=== PATIENT | male | born 1945 | race Caucasian/White ===

== ENCOUNTER 2018-12-04 10:02 | Day surgery (SDC) | payer MEDICARE, OTHER ==
[~2018-12-04] VITALS: Ht 177.8 cm; Wt 81.6 kg
[~2018-12-04 10:02] MED LIST: ALPR0.5T3 PO; AMLO10TA5 PO; ASPI81TA85 PO; CALC600T60 PO; FLUTISP; KRIL1CAP6 PO; LIDOCAINE 2% INJ 100 MG/5 ML SDV (FOR ANES.) As Ordered ONE; LOSA100T50 PO; MAGN400C2 PO; META28.32 PO; MULTCAP PO; OMEP-218 PO; PROPOFOL 200 MG/20 ML VIAL As Ordered ONE; ROSU5TAB5 PO; SPIR1TAB34 PO; VENL-115 PO; VITA500045 PO
[2018-12-04] MEDS: NS 1,000 ML IV ONE (10:18)
--- NOTE | 2018-12-04 11:38 | ROOR ---
Patient Name: Tate Mcleod Procedure Date: 12/04/2018 11:11 AM Date of : 1945 Age: 73 Room: [facility] Gender: Male Note Status: Finalized Procedure: Total Colonoscopy to Cecum + Cold Snare Polypectomy Indications: High risk colon cancer surveillance: Personal history of colonic polyps, Last colonoscopy: 2009 Providers: Otilio Mejia MD Referring MD: Charissa Costa MD Requesting Provider: Medicines: Monitored Anesthesia Care Complications: No immediate complications. Procedure: Pre-Anesthesia Assessment: - The heart rate, respiratory rate, oxygen saturations, blood pressure, adequacy of pulmonary ventilation, and response to care were monitored throughout the procedure. The Colonoscope was introduced through the anus and advanced to the cecum, identified by appendiceal orifice and ileocecal valve. The colonoscopy was performed without difficulty. The patient tolerated the procedure well. The quality of the bowel preparation was excellent. Findings: The perianal and digital rectal examinations were normal. Non-bleeding internal hemorrhoids were found during retroflexion. The hemorrhoids were small and Grade I (internal hemorrhoids that do not prolapse). A small polyp was found in the rectum. The polyp was sessile. The polyp was removed with a cold snare. Resection and retrieval were complete. Two sessile polyps were found in the ascending colon. The polyps were small in size. These polyps were removed with a cold snare. Resection and retrieval were complete. The exam was otherwise without abnormality on direct and retroflexion views. Impression: - Non-bleeding internal hemorrhoids. - One small polyp in the rectum, removed with a cold snare. Resected and retrieved. - Two small polyps in the ascending colon, removed with a cold snare. Resected and retrieved. - The examination was otherwise normal on direct and retroflexion views. - The exam was otherwise normal to the cecum. Recommendation: - Patient has a contact number available for emergencies. The signs and symptoms of potential delayed complications were discussed with the patient. Return to normal activities tomorrow. Written discharge instructions were provided to the patient. - High fiber diet. - Discharge patient to home. - Continue present medications. - Await pathology results. - Telephone GI clinic for pathology results in 1 week. - Repeat colonoscopy for symptoms only. - Return to referring physician. - The findings and recommendations were discussed with the patient's family. Otilio Mejia MD Otilio Mejia MD 12/04/2018 11:38:38 AM Electronically signed by Otilio Mejia MD Number of Addenda: 0 Note Initiated On: 12/04/2018 11:11 AM Estimated Blood Loss: Estimated blood loss: none.
[2018-12-04 12:15] VITALS: BP 129/79
== END 2018-12-04 12:15 | disposition home or self-care (01) ==
LOC: M OPP 10:02
PROVIDERS: ATTEND Internal Medicine Gastroenterology
DX: Z12.11 Encounter for screening for malignant neoplasm of colon (principal); Z86.010 Personal history of colon polyps; K64.0 First degree hemorrhoids; K62.1 Rectal polyp; D12.2 Benign neoplasm of ascending colon; Z79.82 Long term (current) use of aspirin; Z79.899 Other long term (current) drug therapy; F17.210 Nicotine dependence, cigarettes, uncomplicated

== ENCOUNTER → 2020-05-03 | Outpatient (CLI) | payer MEDICARE, OTHER ==
[~2020-05-03] MED LIST changes: -AMLO10TA5 PO; +AMLO1TAB25 PO; +ASPI81TA26 PO; -ASPI81TA85 PO; +ASPI81TA86 PO; -LIDOCAINE 2% INJ 100 MG/5 ML SDV (FOR ANES.) As Ordered ONE; -PROPOFOL 200 MG/20 ML VIAL As Ordered ONE; +VITA-158 PO; +VITA50005 PO; +VITMTA PO
== END ==
LOC: M LABSMTC 08:58
PROVIDERS: ATTEND Anesthesiology
DX: Z01.812 Encounter for preprocedural laboratory examination (principal); Z20.822 Contact with and (suspected) exposure to COVID-19

== ENCOUNTER 2020-05-08 06:43 | Day surgery (SDC) | payer MEDICARE, OTHER ==
[~2020-05-08] VITALS: Ht 177.8 cm; Wt 87.7 kg
[~2020-05-08 06:43] MED LIST changes: +ACETYLCHOLINE OPHTH SOLN 1% 2ML (MIOCHOL-E) As Ordered ONE; +DUOVISC (0.50ML VISCOAT/0.55ML PROVISC) OPHTH KIT As Ordered ONE; +POVIDONE-IODINE 5% OPHTH PREP SOL 30ML As Ordered ONE; +TOBRADEX OPHTH OINT 3.5 GM As Ordered ONE; +TRYPAN BLUE 0.06 % 2.25 ML OPHTH SYR (VISIONBLUE) As Ordered ONE
--- OUTSIDE RECORDS SUMMARY | 2020-05-08 06:52 | CCD | Continuity of Care Document ---
Author Author Tate SAHU PA Organization Unknown Address [address] [facility] [place] [address] [place] [address] Phone [phone] Care Team Providers Care Glost Tile Shader Name Role Phone Damián Clarke MD [facility] [phone] Problems Description No Information Available Social History Type Date Description Comments Sex Unknown Tobacco Use Start: Unknown Never Used Smokeless Tobacco ETOH Use Drinks 3 Alcoholic Beverages Per Day Tobacco Use Start: [birth year]59 Light tobacco smoker (10 or fewe r cigarettes/day) 2 cigs a day, occassionally 4 to 5 per day prior. Recreational Drug Use Denies Drug Use Smoking Status Reviewed: 05/01/20 Light tobacco smoker (10 or fewer cigarettes/day) 2 cigs a day, occassionally 4 to 5 per d ay prior. Exercise Type/Frequency Exercises regularly Tattoo/Piercing none Sun Exposure Minimum amount of sun exposure Sun Exposure Uses sunscreen also wears cover ups, hat [place] shirt Seat Belt/Car Seat Always uses seat belt Bike Helmet does not ride Smoke Alarms Yes Smoke Alarms Carbon Monoxide Detector: Yes Allergies, Adverse Reactions, Alerts Active Allergies Reaction Severity Comments Date NKDA 02/17/2016 seasonal 07/26/2017 Medications Active Medications SIG Qnty Indications Ordering Provide r Date Vitamin D3 1.25mg (56400 Ut) Capsu les take one capsule by mouth once weekly 14caps Charissa Costa M.D. 05/01/2019 Alprazolam 0.5mg Tablets 1 tab by mouth once a day if needed for sleep 30tabs Charissa Costa M.D. Aspir-[address] 1 by mouth every day Unknown Krill Oil Bowl[place]-3 500mg Capsules daily Unknown Multi-Vitamin Daily Tablets 1 by mouth every day Unknown Calcium 600 600mg Tablets 1 by mouth daily Unknown Viagra 100mg Tablets take 1 tablet by mouth 30 minutes prior to intercourse. this is a 90 day supply 40taCharissa Carter M.D. Magnesium 400mg Tablets 1 by mouth bid Unknown Venlafaxine HCL ER 75mg Tablets ER 24HR 1 by mouth every day 90taCharissa Carter M.D. Amlodipine Besylate 10mg Tablets Take 1 Tablet Daily For Blood Pressure 90taCharissa Carter M.D. Omeprazole 20mg Capsules DR Take 1 Capsule Daily 90caps Charissa Costa M.D. Losartan Potassium 100mg Tablets Take 1 Tablet Daily For Blood Pressure 90taCharissa Carter M.D. Fluticasone Propionate 50mcg/Act Suspension two sprays each side of nose daily Unknow n Saline Nasal [place] 0.65% Solution use 4 times a day for nasal congestion/irritation Unkn own Azelastine HCL (Nasal) 0.15% Solut ion 1-2 sprays in each nostril twice a day as needed Unk nown Citracel 1 Scoop to 8 oz fluid daily Unknown Immunizations CPT Code Status Date Vaccine Lot # [id number] [facility], [facility] LNP-S, PF, 30 mcg/ 0.3 mL 02643 Given 12/24/2019 Influenza Virus Vaccine, Quadrivalent,age 3 and up,multidose vial [id number] 38442 Given 02/01/2019 Influenza Virus Vaccine, Quadrivalent,age 3 and up,multidose vial [id number] 94621 Given 12/29/2017 Influenza Virus Vaccine, Quadrivalent,age 3 and up,multidose vial [id number] 42725 Given 01/03/2017 Influenza Vaccination 58095 Given 05/27/2016 Pneumococcal Vaccine [id number] 17851 Given 12/20/2015 Influenza Vaccination 81095 Given 10/30/2014 Prevnar 13 For Adults 34397 Given 10/30/2014 Zostavax Vital Signs Date Vital Result Comment 05/01/2020 10:51am BP Systolic 155 mmHg BP Diastolic 91 mmHg BP Systolic Recheck 141 mmHg BP Diastolic Recheck 80 mmHg Heart Rate 17 /min Body Temperature 97.7 F Respiratory Rate 16 /min Height 70.0 inches 5'10" Weight 196.12 lb O2 % BldC Oximetry 98 % Peak Expiratory Flow Rate 490 Estimated Peak Flow Rate [place] Body Weight 166 lb BMI (Body Mass Index) 28.1 kg/m2 12/24/2019 1:40pm Body Temperature 96.9 F Height 71 inches 5'11" Peak Expiratory Flow Rate 504 Estimated Peak Flow Rate [place] Body Weight 172 lb Results Test Acquired Date Facility Test Result H/L Range Note Lipid Panel 04/25/2020 [facility] [address] [place], [place] [id number] [phone] Cholesterol, Total 188 mg/dL 100-199 Triglycerides 137 mg/dL 0-149 HDL Cholesterol 42 mg/dL >39 VLDL Cholesterol Marc 25 mg/dL 5-40 LDL Chol Calc ([facility]) 121 mg/dL High 0-99 Comment: TNP Metabolic Panel (14), Comprehensive 04/25/2020 [facility] [address] [place], [place] [id number] [phone] Glucose 104 mg/dL High 65-99 BUN 20 mg/dL 8-27 Creatinine 1.18 mg/dL 0.76-1.27 eGFR If NonAfricn Am 60 mL/min/1.73 >59 eGFR If Africn Am 69 mL/min/1.73 >59 BUN/Creatinine Ratio 17 10-24 Sodium 140 mmol/L 134-144 Potassium 4.7 mmol/L 3.5-5.2 Chloride 103 mmol/L 96-106 Carbon Dioxide, Total 25 mmol/L 20-29 Calcium 9.5 mg/dL 8.6-10.2 Protein, Total 7.8 g/dL 6.0-8.5 Albumin 4.3 g/dL 3.7-4.7 Globulin, Total 3.5 g/dL 1.5-4.5 A/G Ratio 1.2 1.2-2.2 Bilirubin, Total 0.7 mg/dL 0.0-1.2 Alkaline Phosphatase 91 IU/L 39-117 Ast (Sgot) 29 IU/L 0-40 Alt (SGPT) 32 IU/L 0-44 Procedures Description No Information Available Medical Devices Description No Information Available Encounters Type Date Location Provider Dx Diagnosis Office Visit 05/01/2020 10:45a Main Office Leann Sahu PA I10 Essential (primary) hypertension E78.2 Mixed hyperlipidemia R09.82 Postnasal drip Assessments Date Code Description Provider 05/01/2020 I10 Essential (primary) hypertension Leann Sahu PA 05/01/2020 E78.2 Mixed hyperlipidemia Leann Sahu PA 05/01/2020 R09.82 Posterior rhinorrhea Leann Sahu PA 12/24/2019 Z23 Encounter for immunization Charissa Colon ams, M.D. Plan of Treatment Future Appointment(s):* 10/30/2020 11:15 am - Elena Uriarte FNP at Main Office Functional Status Functional Condition Comment Date Status Bifocal glasses Active Independent with all ADL's Activ e couple dental implants Active Independent with all IADL's Acti ve Mental Status Mental Condition Comment Date Status None Active Referrals Description No Information Available
--- OUTSIDE RECORDS SUMMARY | 2020-05-08 06:52 | CCD | Continuity of Care Document ---
Author Author Tate SAHU PA Organization Unknown Address [address] [facility] [place] [place] [address] [place] [address] Phone [phone] Care Team Providers Care Care Services Manager Name Role Phone Damián Clarke MD [facility] [phone] Problems Description No Information Available Social History [...] Ordering Provide r Date Vitamin D3 1.25mg (69098 Ut) Capsu les take one capsule by mouth once weekly 14caps Charissa Costa M.D. 05/01/2019 Alprazolam 0.5mg Tablets 1 tab by mouth once a day if needed for sleep 30tabs Charissa Costa M.D. Aspir-[address] 1 by mouth every day Unknown Krill Oil Gray-3 500mg Capsules daily Unknown Multi-Vitamin Daily Tablets [...] of nose daily Unknow n Saline Nasal [place] 0.65% Solution use 4 times a day for nasal congestion/irritation Unkn own Azelastine HCL (Nasal) 0.15% Solut ion 1-2 sprays in each nostril twice a day as needed Unk nown Citracel 1 Scoop to 8 oz fluid daily Unknown Immunizations CPT Code Status Date Vaccine Lot # [id number] [facility], [facility], LNP-S, PF, 30 mcg/ 0.3 mL 48244 Given 12/24/2019 Influenza Virus Vaccine, Quadrivalent,age 3 and up,multidose vial [id number] 27139 Given 02/01/2019 Influenza Virus Vaccine, Quadrivalent,age 3 and up,multidose vial [id number] 03259 Given 12/29/2017 Influenza Virus Vaccine, Quadrivalent,age 3 and up,multidose vial [id number] 64742 Given 01/03/2017 Influenza Vaccination 62537 Given 05/27/2016 Pneumococcal Vaccine [id number] 53731 Given 12/20/2015 Influenza Vaccination 33340 Given 10/30/2014 Prevnar 13 For Adults 10514 Given 10/30/2014 Zostavax Vital Signs Date Vital Result Comment 05/01/2020 10:51am BP Systolic 155 mmHg BP Diastolic 91 mmHg BP Systolic Recheck 141 mmHg BP Diastolic Recheck 80 mmHg Heart Rate 17 /min Body Temperature 97.7 F Respiratory Rate 16 /min Height 70.0 inches 5'10" Weight 196.12 lb O2 % BldC Oximetry 98 % Peak Expiratory Flow Rate 490 Estimated Peak Flow Rate [place] Body Weight 166 lb BMI (Body Mass Index) 28.1 kg/m2 12/24/2019 1:40pm Body Temperature 96.9 F Height 71 inches 5'11" Peak Expiratory Flow Rate 504 Estimated Peak Flow Rate [place] Body Weight 172 lb Results Test Acquired Date Facility Test Result H/L Range Note Lipid Panel 04/25/2020 [facility] [address] [place], [place] [id number] [phone] Cholesterol, Total 188 mg/dL 100-199 Triglycerides 137 mg/dL 0-149 HDL Cholesterol 42 mg/dL >39 VLDL Cholesterol Marc 25 mg/dL 5-40 LDL Chol Calc ([facility]) 121 mg/dL High 0-99 Comment: TNP Metabolic Panel (14), Comprehensive 04/25/2020 [facility] [address] [place], [place] [id number] [phone] Glucose 104 mg/dL High 65-99 BUN 20 [...] Charissa Colon ams, M.D. Plan of Treatment 05/01/2020 - Leann Sahu PA* I10 Essential (primary) hypertension * Comments:* BP elevated in office today but home readings are well controlledcontinue home checks * Follow up:* 6 months * E78.2 Mixed hyperlipidemia* Comments:* cholesterol is at goal, labs reviewedcontinue regular exercise * R09.82 Posterior rhinorrhea* Comments:* nasal saline spray dailyhumidifier at nightcontinue astelin Functional Status Functional Condition Comment Date Status Bifocal glasses Active Independent with all ADL's Activ e couple dental implants Active Independent with all IADL's Acti ve Mental Status Mental Condition Comment Date Status None Active Referrals Description No Information Available
--- OUTSIDE RECORDS SUMMARY | 2020-05-08 06:53 | CCD ---
Author Author [facility] Organization [facility] Address Unknown Phone Unavailable Care Team Providers Care Collar Stitcher Name Role Phone Scordo, M Megan PA Unavailable Unavailable Scordo, M Megan PA Unavailable Unavailable Scordo, M Megan PA Unavailable Unavailable Scordo, M Megan PA Unavailable Unavailable Scordo, M Megan PA Unavailable Unavailable Scordo, M Megan PA Unavailable Unavailable Scordo, M Megan PA Unavailable Unavailable Scordo, M Megan PA Unavailable Unavailable Scordo, M Megan PA Unavailable Unavailable Scordo, M Megan PA Unavailable Unavailable Scordo, M Megan PA Unavailable Unavailable Scordo, M Megan PA Unavailable Unavailable Scordo, M Megan PA Unavailable Unavailable Scordo, M Megan PA Unavailable Unavailable Scordo, M Megan PA Unavailable Unavailable Scordo, M Megan PA Unavailable Unavailable Scordo, M Megan PA Unavailable Unavailable Scordo, M Megan PA Unavailable Unavailable Scordo, M Megan PA Unavailable Unavailable Scordo, M Megan PA Unavailable Unavailable Scordo, M Megan PA Unavailable Unavailable Scordo, M Megan PA Unavailable Unavailable Scordo, M Megan PA Unavailable Unavailable Scordo, M Megan PA Unavailable Unavailable Scordo, M Megan PA Unavailable Unavailable Scordo, M Megan PA Unavailable Unavailable Scordo, M Megan PA Unavailable Unavailable Scordo, M Megan PA Unavailable Unavailable Scordo, M Megan PA Unavailable Unavailable Scordo, M Megan PA Unavailable Unavailable Scordo, M Megan PA Unavailable Unavailable Scordo, M Megan PA Unavailable Unavailable Scordo, M Megan PA Unavailable Unavailable Scordo, M Megan PA Unavailable Unavailable Scordo, M Megan PA Unavailable Unavailable Scordo, M Megan PA Unavailable Unavailable Scordo, M Megan PA Unavailable Unavailable Scordo, M Megan PA Unavailable Unavailable Scordo, M Megan PA Unavailable Unavailable Scordo, M Megan PA Unavailable Unavailable Scordo, M Megan PA Unavailable Unavailable Scordo, M Megan PA Unavailable Unavailable Scordo, M Megan PA Unavailable Unavailable Petrancosta, [place] Leann PA-C Unavailable Unavailabl e Petrancosta, [place] Leann PA-C Unavailable Unavailabl e Petrancosta, [place] Leann PA-C Unavailable Unavailabl e Petrancosta, [place] Leann PA-C Unavailable Unavailabl e Petrancosta, [place] Leann PA-C Unavailable Unavailabl e Petrancosta, [place] Leann PA-C Unavailable Unavailabl e Petrancosta, [place] Leann PA-C Unavailable Unavailabl e Petrancosta, [place] Leann PA-C Unavailable Unavailabl e Petrancosta, [place] Leann PA-C Unavailable Unavailabl e Petrancosta, [place] Leann PA-C Unavailable Unavailabl e Petrancosta, [place] Leann PA-C Unavailable Unavailabl e Petrancosta, [place] Leann PA-C Unavailable Unavailabl e Petrancosta, [place] Leann PA-C Unavailable Unavailabl e Petrancosta, [place] Leann PA-C Unavailable Unavailabl e Petrancosta, [place] Leann PA-C Unavailable Unavailabl e Petrancosta, [place] Leann PA-C Unavailable Unavailabl e Petrancosta, [place] Leann PA-C Unavailable Unavailabl e Petrancosta, [place] Leann PA-C Unavailable Unavailabl e Petrancosta, [place] Laenn PA-C Unavailable Unavailabl e Petrancosta, [place] Leann PA-C Unavailable Unavailabl e Petrancosta, [place] Leann PA-C Unavailable Unavailabl e Petrancosta, [place] Leann PA-C Unavailable Unavailabl e Petrancosta, [place] Leann PA-C Unavailable Unavailabl e [place], L Alexandra PHOTOGRAPHIC PROCESS WORKER Unavailable Unavailable [place], L Laexandra PHOTOGRAPHIC PROCESS WORKER Unavailable Unavailable [place], L Alexandra PHOTOGRAPHIC PROCESS WORKER Unavailable Unavailable Wicho, L Alexandra PHOTOGRAPHIC PROCESS WORKER Unavailable Unavailable [place]ich[place], L Alexandra PHOTOGRAPHIC PROCESS WORKER Unavailable Unavailable [place], L Alexandra PHOTOGRAPHIC PROCESS WORKER Unavailable Unavailable [place], L Alexandra PHOTOGRAPHIC PROCESS WORKER Unavailable Unavailable [place], L Alexandra PHOTOGRAPHIC PROCESS WORKER Unavailable Unavailable [place], L Alexandra PHOTOGRAPHIC PROCESS WORKER Unavailable Unavailable [place], L Alexandra PHOTOGRAPHIC PROCESS WORKER Unavailable Unavailable [place], L Alexandra PHOTOGRAPHIC PROCESS WORKER Unavailable Unavailable [place], L Alexandra PHOTOGRAPHIC PROCESS WORKER Unavailable Unavailable [place], L Alexandra PHOTOGRAPHIC PROCESS WORKER Unavailable Unavailable [place], L Alexandra PHOTOGRAPHIC PROCESS WORKER Unavailable Unavailable [place], L Alexandra PHOTOGRAPHIC PROCESS WORKER Unavailable Unavailable [place], L Alexandra PHOTOGRAPHIC PROCESS WORKER Unavailable Unavailable [place], L Alexandra PHOTOGRAPHIC PROCESS WORKER Unavailable Unavailable [place], L Alexandra PHOTOGRAPHIC PROCESS WORKER Unavailable Unavailable [place], L Alexandra PHOTOGRAPHIC PROCESS WORKER Unavailable Unavailable [place], L Alexandra PHOTOGRAPHIC PROCESS WORKER Unavailable Unavailable [place], L Alexandra PHOTOGRAPHIC PROCESS WORKER Unavailable Unavailable [place], L Alexandra PHOTOGRAPHIC PROCESS WORKER Unavailable Unavailable [place], L Alexandra PHOTOGRAPHIC PROCESS WORKER Unavailable Unavailable [place], L Alexandra PHOTOGRAPHIC PROCESS WORKER Unavailable Unavailable [place], L Alexandra PHOTOGRAPHIC PROCESS WORKER Unavailable Unavailable [place], L Alexandra PHOTOGRAPHIC PROCESS WORKER Unavailable Unavailable [place], L Alexandra PHOTOGRAPHIC PROCESS WORKER Unavailable Unavailable [place], L Alexandra PHOTOGRAPHIC PROCESS WORKER Unavailable Unavailable [place], L Alexandra PHOTOGRAPHIC PROCESS WORKER Unavailable Unavailable [place], L Alexandra PHOTOGRAPHIC PROCESS WORKER Unavailable Unavailable [place], L Alexandra PHOTOGRAPHIC PROCESS WORKER Unavailable Unavailable [place], L Alexandra PHOTOGRAPHIC PROCESS WORKER Unavailable Unavailable [place], L Alexandra PHOTOGRAPHIC PROCESS WORKER Unavailable Unavailable Re-disclosure Warning The records that you are about to access may contain information from federally-assisted alcohol or drug abuse programs. If such information is present, then the following federally mandated warning applies: This information has been disclosed to you from records protected by federal confidentiality rules (42 CFR part 2). The federal rules prohibit you from making any further disclosure of this information unless further disclosure is expressly permitted by the written consent of the person to whom it pertains or as otherwise permitted by 42 CFR part 2. A general authorization for the release of medical or other information is NOT sufficient for this purpose. The Federal rules restrict any use of the information to criminally investigate or prosecute any alcohol or drug abuse patient.The records that you are about to access may contain highly sensitive health information, the redisclosure of which is protected by Article 27-F of the [facility] Public Health law. If you continue you may have access to information: Regarding HIV / AIDS; Provided by facilities licensed or operated by the [facility] Office of Mental Health; or Provided by the [facility] Office for People With Developmental Disabilities. If such information is present, then the following [facility] mandated warning applies: This information has been disclosed to you from confidential records which are protected by state law. State law prohibits you from making any further disclosure of this information without the specific written consent of the person to whom it pertains, or as otherwise permitted by law. Any unauthorized further disclosure in violation of state law may result in a fine or care home sentence or both. A general authorization for the release of medical or other information is NOT sufficient authorization for further disc losure. Family History Family Member Name Family Member Gender Family Member Status Date o f Status Description Data Source(s) Unknown Male Problem [facility] ([facility]) Unknown Unknown Problem [facility] ([facility] Encounters Encounter Providers Location Date Indications Data Source(s ) Outpatient Attender: Leann Sahu PA-C Main Office 05/01/2020 09:45:00 AM EST [facility] ([facility] Outpatient Attender: Megan ARENAS Main Office 10/30/2019 10:45:00 AM EDT [facility] ([facility] Outpatient Attender: Alexandra CHONG Main Office 05/17/2019 09:30:0 0 AM EST [facility] ([facility] Outpatient Attender: Megan ARENAS Main Office 05/01/2019 09:15:00 AM EST [facility] ([facility] Immunizations Vaccine Date Status Description Data Source(s) Pfizer-Sars-(Covid-19) vaccine, mRNA, LNP-S, PF, 30 mc g/ 0.3 mL 04/20/2020 10:14:00 AM EST completed [facility] ([facility] New in 2012. IIV4 12/24/2019 01:39:00 PM EDT completed [facility] ([facility] Medications Medication Brand Name Start Date Product Form Dose Route Admi nistrative Instructions Pharmacy Instructions Status Indications Reaction Description Data Source(s) moxifloxacin 5 MG/ML Ophthalmic Solution 0.5 % MOXIFLOXACIN HCL 04/30/2020 12:00:00 AM EST drops 3 START DAY OF LEOLA KOLBY AFTER PROCEDURE 1 DROP IN THE RIGHT EYE FOUR TIMES A DAY START DAY OF SURGERY AFTER PROCEDURE 1 D ROP IN THE RIGHT EYE FOUR TIMES A DAY SOLD: 04/30/2020 [facility] 1 % 04/30/2020 12:00:00 AM EST drops,suspension 10 INSTILL 1 DROP IN THE LEFT EYE FOUR TIMES A DAY INSTILL 1 DROP IN THE LEFT EYE FOUR TIMES A DAY SOLD: 04/30/2020 [facility] meloxicam 7.5 MG Oral Tablet Meloxicam 10/30/2019 12:00:00 AM EDT ORAL active [facility] ([facility] meloxicam 7.5 MG Oral Tablet MELOXICAM 10/30/2019 12:00:00 AM EDT tabl et 60 TAKE 1 TABLET BY MOUTH UP TO TWICE A DAY NEEDED FOR PAIN TAKE 1 TABLET BY MOUTH UP TO TWICE A DAY NEEDED FOR PAIN SOLD: 10/31/2019 [facility] Ergocalciferol 42920 UNT Oral Capsule Vitamin D (Ergocalcife rol) 06/19/2019 12:00:00 AM EDT active M [facility] ([facility] Cholecalciferol 16410 UNT Oral Capsule Vitamin D3 05/01/2019 12:0 0:00 AM EST ORAL active [facility] ([facility] Rosuvastatin calcium 5 MG Oral Tablet Rosuvastatin Calcium 0 05/01/2019 12:00:00 AM EST ORAL active [facility] ([facility] pitavastatin 2 MG Oral Tablet [Livalo] Livalo 02/01/2019 12:00:00 AM EST ORAL completed [facility] ([facility] Insurance Providers Payer name Policy type / Coverage type Policy ID Covered green party ID Covered green party's relationship to tobias Policy Tobias Plan Information [facility] [id number] SP [id number] MEDICARE [id number] SP [id number] [facility] [id number] MEDICARE [id number] SP [id number] A Umr (pr) Medigap Part B [id number] Self [id number] Medicare [place] Primary [id number] Self [id number] Umr Medigap Part B [id number] Self [id number] [place] Primary [id number] Self [id number] UMR [id number] Commercial Insur ance Co. [id number] Medicare [id number] Medicare Part [id number] [employer] Medigap Part B [id number] Self [id number] Medicare [place] Medicare Primary [id number] Self [id number] [employer] Medigap Part B [id number] Self [id number] [place] Medicare Primary [id number] Self [id number] [employer] -O/P [id number] 18 [id number] MEDICARE PART A -O/P [id number] 18 [id number] [place] Medigap Part B [id number] Self [id number] [place] Primary [id number] Self [id number] [place] Medigap Part B [id number] Self [id number] [place] Primary [id number] Self [id number] [employer] PPO O [id number] S [id number] MEDICARE C [id number] S [id number] A [employer] Medigap Part B [id number] Self [id number] [place] Primary [id number] Self [id number] [place] Medigap Part B Self Medicare [place] Primary Self [id number] A Problems, Conditions, and Diagnoses Code Display Name Description Problem Type Effective Dates Data Source(s) 95244823 Essential hypertension Essential hypertension Problem 05/17/2019 12:00:00 AM EST [facility] ([facility] [id number] Pure hypercholesterolemia Pure hypercholesterolemia Pr oblem 05/17/2019 12:00:00 AM EST [facility] ([facility] ) Surgeries/Procedures Procedure Description Date Indications Data Source(s) Brief Emotional/Behav Assessment W/ Scoring Doc Per Standard Inst 05/01/2019 12:00:00 AM EST [facility] ([facility] Results ID Date Data Source [id number] 05/03/2020 09:00:00 AM EST [facility] Name Value Range Interpretation Code Description Data Paulina rce(s) Supporting Document(s) SARS coronavirus 2 RNA Not Detected [facility] This lab was ordered by [facility] and reported by [facility]. ID Date Data Source [id number] 04/25/2020 10:36:00 AM EST [facility] ([facility] Name Value Range Interpretation Code Description Data Paulina rce(s) Supporting Document(s) Glucose [Mass/volume] in Serum or Plasma 104 mg/dL 65-99 [facility] ([facility] Urea nitrogen [Mass/volume] in Serum or Plasma 20 mg/dL 8-27 [facility] ([facility] Creatinine [Mass/volume] in Serum or Plasma 1.18 mg/dL 0.76-1.27 [facility] ([facility] eGFR If Africn Am 69 mL/min/1.73 [facility] ([facility] eGFR If NonAfricn Am 60 mL/min/1.73 [facility] ([facility] Sodium [Moles/volume] in Serum or Plasma 140 mmol/L 134-144 [facility] ([facility] Potassium [Moles/volume] in Serum or Plasma 4.7 mmol/L 3.5-5.2 [facility] ([facility] Urea nitrogen/Creatinine [Mass Ratio] in Serum or Plasma 17 1 0-24 [facility] ([facility] Carbon dioxide, total [Moles/volume] in Serum or Plasma 25 mmol/L 20 -29 [facility] ([facility] Calcium [Mass/volume] in Serum or Plasma 9.5 mg/dL 8.6-10.2 [facility] ([facility] Chloride [Moles/volume] in Serum or Plasma 103 mmol/L 96-106 [facility] Globulin [Mass/volume] in Serum by calculation 3.5 g/dL 1.5-4.5 [facility] ([facility] Protein, Total 7.8 g/dL 6.0-8.5 [facility] Albumin [Mass/volume] in Serum or Plasma 4.3 g/dL 3.7-4.7 [facility] Bilirubin.total [Mass/volume] in Serum or Plasma 0.7 mg/dL 0.0-1.2 [facility] ([facility] Alkaline phosphatase [Enzymatic activity/volume] in Serum or Plasma 91 IU/L 39-117 [facility] ([facility] Albumin/Globulin [Mass Ratio] in Serum or Plasma 1.2 1.2-2.2 [facility] ([facility] Aspartate aminotransferase [Enzymatic activity/volume] in Serum or Plasma 29 IU/L 0-40 [facility] Alanine aminotransferase [Enzymatic activity/volume] in Seru m or Plasma 32 IU/L 0-44 [facility] ([facility] ID Date Data Source [id number] 04/25/2020 10:36:00 AM EST [facility] ([facility] Name Value Range Interpretation Code Description Data Paulina rce(s) Supporting Document(s) Triglyceride [Mass/volume] in Serum or Plasma 137 mg/dL 0-149 [facility] ([facility] Cholesterol [Mass/volume] in Serum or Plasma 188 mg/dL 100-199 [facility] ([facility] Laboratory test finding (navigational concept) 25 mg/dL 5-40 [facility] ([facility] Cholesterol in HDL [Mass/volume] in Serum or Plasma 42 mg/dL [facility] Laboratory test finding (navigational concept) 121 mg/dL 0-99 [facility] ([facility] Comment: Laboratory test result [facility] ([facility] ID Date Data Source [id number] 04/26/2020 05:05:00 AM EST [facility] Name Value Range Interpretation Code Description Data Paulina rce(s) Supporting Document(s) Glucose 104 mg/dL 65-99 Above high normal [facility] BUN 20 mg/dL 8-27 [facility] Creatinine 1.18 mg/dL 0.76-1.27 [facility] eGFR If NonAfricn Am 60 mL/min/1.73 >59 [facility] eGFR If Africn Am 69 mL/min/1.73 >59 [facility] BUN/Creatinine Ratio 17 10-24 [facility] Sodium 140 mmol/L 134-144 [facility] Potassium 4.7 mmol/L 3.5-5.2 [facility] Chloride 103 mmol/L 96-106 [facility] Carbon Dioxide, Total 25 mmol/L 20-29 [facility] Calcium 9.5 mg/dL 8.6-10.2 [facility] Protein, Total 7.8 g/dL 6.0-8.5 [facility] Albumin 4.3 g/dL 3.7-4.7 [facility] Globulin, Total 3.5 g/dL 1.5-4.5 [facility] A/G Ratio 1.2 1.2-2.2 [facility] Bilirubin, Total 0.7 mg/dL 0.0-1.2 [facility] Alkaline Phosphatase 91 IU/L 39-117 [facility] AST (SGOT) 29 IU/L 0-40 [facility] ALT (SGPT) 32 IU/L 0-44 [facility] ID Date Data Source [id number] 04/26/2020 05:05:00 AM EST [facility] Name Value Range Interpretation Code Description Data Paulina rce(s) Supporting Document(s) Cholesterol, Total 188 mg/dL 100-199 [facility] Triglycerides 137 mg/dL 0-149 [facility] HDL Cholesterol 42 mg/dL >39 [facility] VLDL Cholesterol Marc 25 mg/dL 5-40 [facility] LDL Chol Calc (NIH) 121 mg/dL 0-99 Above high normal [facility] ID Date Data Source [id number] 10/23/2019 10:52:00 AM EDT [facility] ([facility] Name Value Range Interpretation Code Description Data Paulina rce(s) Supporting Document(s) Glucose [Mass/volume] in Serum or Plasma 97 mg/dL 65-99 [facility] ([facility] eGFR If NonAfricn Am 57 mL/min/1.73 [facility] ([facility] Creatinine [Mass/volume] in Serum or Plasma 1.23 mg/dL 0.76-1.27 [facility] ([facility] Urea nitrogen [Mass/volume] in Serum or Plasma 21 mg/dL 8-27 [facility] Sodium [Moles/volume] in Serum or Plasma 138 mmol/L 134-144 [facility] eGFR If Africn Am 66 mL/min/1.73 [facility] Urea nitrogen/Creatinine [Mass Ratio] in Serum or Plasma 17 1 0-24 [facility] Chloride [Moles/volume] in Serum or Plasma 100 mmol/L 96-106 [facility] Potassium [Moles/volume] in Serum or Plasma 4.9 mmol/L 3.5-5.2 [facility] Carbon dioxide, total [Moles/volume] in Serum or Plasma 27 mmol/L 20 -29 [facility] Albumin [Mass/volume] in Serum or Plasma 4.3 g/dL 3.7-4.7 [facility] Calcium [Mass/volume] in Serum or Plasma 9.7 mg/dL 8.6-10.2 [facility] ([facility] Protein, Total 7.6 g/dL 6.0-8.5 [facility] Alkaline phosphatase [Enzymatic activity/volume] in Serum or Plasma 67 IU/L 39-117 [facility] Bilirubin.total [Mass/volume] in Serum or Plasma 0.7 mg/dL 0.0-1.2 [facility] ([facility] Globulin [Mass/volume] in Serum by calculation 3.3 g/dL 1.5-4.5 [facility] Albumin/Globulin [Mass Ratio] in Serum or Plasma 1.3 1.2-2.2 [facility] ([facility] Aspartate aminotransferase [Enzymatic activity/volume] in Serum or Plasma 26 IU/L 0-40 [facility] Alanine aminotransferase [Enzymatic activity/volume] in Seru m or Plasma 29 IU/L 0-44 [facility] ([facility] ID Date Data Source [id number] 10/23/2019 10:52:00 AM EDT [facility] ([facility] Name Value Range Interpretation Code Description Data Paulina rce(s) Supporting Document(s) Calcidiol [Mass/volume] in Serum or Plasma 49.7 ng/mL 30.0-100.0 [facility] ([facility] Vitamin D deficiency has been defined by the [place] [employer] and an Endocrine Society practice guideline as a level of serum 25-OH vitamin D less than 20 ng/mL (1,2). The Endocrine Society went on to further define vitamin D insufficiency as a level between 21 and 29 ng/mL (2). 1. IOM ([place] of [employer]). 2010. Di etary reference intakes for calcium and D. [place]: The National Academies Press. 2. Sandra PIERRE, Hero WHARTON, Telly anderson MA, et al. Evaluation, treatment, and prevention of vitamin D deficiency: an Endocrine Society clinical practice guideline. JCEM. 2010; 96(7):1911-30. ID Date Data Source [id number] 10/23/2019 10:52:00 AM EDT [facility] ([facility] Name Value Range Interpretation Code Description Data Paulina rce(s) Supporting Document(s) Leukocytes [#/volume] in Blood by Automated count 4.9 x10E3/uL 3.4-10 .8 [facility] ([facility] Hematocrit [Volume Fraction] of Blood by Automated count 42.5 % 3 7.5-51.0 [facility] ([facility] Erythrocyte mean corpuscular volume [Entitic volume] by Auto mated count 92 fL 79-97 [facility] Hemoglobin [Mass/volume] in Blood 14.9 g/dL 13.0-17.7 [facility] ([facility] Erythrocytes [#/volume] in Blood by Automated count 4.61 x10E6/uL 4.1 4-5.80 [facility] ([facility] Erythrocyte mean corpuscular hemoglobin concentration [Mass/volume] by Automated count 35.1 g/dL 31.5-35.7 [facility] Erythrocyte distribution width [Ratio] by Automated count 12.5 % 11.6-15.4 [facility] Erythrocyte mean corpuscular hemoglobin [Entitic mass] by Automated count 32.3 pg 26.6-33.0 [facility] Platelets [#/volume] in Blood by Automated count 234 x10E3/uL 150-450 [facility] Neutrophils 61 % [facility] Lymphocytes/100 leukocytes in Blood by Automated count 15 % [facility] Eosinophils/100 leukocytes in Blood by Automated count 13 % [facility] Monocytes/100 leukocytes in Blood by Automated count 10 % [facility] Basophils/100 leukocytes in Blood by Automated count 1 % [facility] Neutrophils [#/volume] in Blood by Automated count 3.0 x10E3/uL 1.4-7 .0 [facility] Immature cells [#/volume] in Blood Laboratory test result [facility] Lymphocytes [#/volume] in Blood 0.7 x10E3/uL 0.7-3.1 [facility] Basophils [#/volume] in Blood by Automated count 0.1 x10E3/uL 0.0-0.2 [facility] Monocytes [#/volume] in Blood 0.5 x10E3/uL 0.1-0.9 [facility] Eosinophils [#/volume] in Blood by Automated count 0.6 x10E3/uL 0.0-0 .4 [facility] Immature granulocytes/100 leukocytes in Blood by Automated count 0 % [facility] Nucleated erythrocytes/100 leukocytes [Ratio] in Blood by Automated count Laboratory test result [facility] Immature granulocytes [#/volume] in Blood by Automated count 0.0 x10E3/uL 0.0-0.1 [facility] Morphology [Interpretation] in Blood Narrative Laboratory test result [facility] ID Date Data Source [id number] 10/23/2019 10:52:00 AM EDT [facility] ([facility] Name Value Range Interpretation Code Description Data Paulina rce(s) Supporting Document(s) Cholesterol [Mass/volume] in Serum or Plasma 198 mg/dL 100-199 [facility] Triglyceride [Mass/volume] in Serum or Plasma 215 mg/dL 0-149 [facility] Cholesterol in HDL [Mass/volume] in Serum or Plasma 41 mg/dL [facility] Cholesterol in VLDL [Mass/volume] in Serum or Plasma by calc ulation 43 mg/dL 5-40 [facility] Comment: Laboratory test result [facility] Cholesterol in LDL [Mass/volume] in Serum or Plasma by calcu lation 114 mg/dL 0-99 [facility] ID Date Data Source [id number] 10/24/2019 06:06:00 AM EDT [facility] Name Value Range Interpretation Code Description Data Paulina rce(s) Supporting Document(s) WBC 4.9 x10E3/uL 3.4-10.8 [facility] RBC 4.61 x10E6/uL 4.14-5.80 [facility] Hemoglobin 14.9 g/dL 13.0-17.7 [facility] Hematocrit 42.5 % 37.5-51.0 [facility] MCV 92 fL 79-97 [facility] MCH 32.3 pg 26.6-33.0 [facility] MCHC 35.1 g/dL 31.5-35.7 [facility] RDW 12.5 % 11.6-15.4 [facility] Platelets 234 x10E3/uL 150-450 [facility] Neutrophils 61 % Not Estab. [facility] Lymphs 15 % Not Estab. [facility] Monocytes 10 % Not Estab. [facility] Eos 13 % Not Estab. [facility] Basos 1 % Not Estab. [facility] Neutrophils (Absolute) 3.0 x10E3/uL 1.4-7.0 [facility] Lymphs (Absolute) 0.7 x10E3/uL 0.7-3.1 [facility] Monocytes(Absolute) 0.5 x10E3/uL 0.1-0.9 [facility] Eos (Absolute) 0.6 x10E3/uL 0.0-0.4 Above high normal [facility] Baso (Absolute) 0.1 x10E3/uL 0.0-0.2 [facility] Immature Granulocytes 0 % Not Estab. [facility] Immature Grans (Abs) 0.0 x10E3/uL 0.0-0.1 [facility] ID Date Data Source [id number] 10/24/2019 08:07:00 AM EDT [facility] Name Value Range Interpretation Code Description Data Paulina rce(s) Supporting Document(s) Glucose 97 mg/dL 65-99 [facility] BUN 21 mg/dL 8-27 [facility] Creatinine 1.23 mg/dL 0.76-1.27 [facility] eGFR If NonAfricn Am 57 mL/min/1.73 >59 Below low normal [facility] eGFR If Africn Am 66 mL/min/1.73 >59 [facility] BUN/Creatinine Ratio 17 10-24 [facility] Sodium 138 mmol/L 134-144 [facility] Potassium 4.9 mmol/L 3.5-5.2 [facility] Chloride 100 mmol/L 96-106 [facility] Carbon Dioxide, Total 27 mmol/L 20-29 [facility] Calcium 9.7 mg/dL 8.6-10.2 [facility] Protein, Total 7.6 g/dL 6.0-8.5 [facility] Albumin 4.3 g/dL 3.7-4.7 [facility] Globulin, Total 3.3 g/dL 1.5-4.5 [facility] A/G Ratio 1.3 1.2-2.2 [facility] Bilirubin, Total 0.7 mg/dL 0.0-1.2 [facility] Alkaline Phosphatase 67 IU/L 39-117 [facility] AST (SGOT) 26 IU/L 0-40 [facility] ALT (SGPT) 29 IU/L 0-44 [facility] ID Date Data Source [id number] 10/24/2019 08:07:00 AM EDT [facility] Name Value Range Interpretation Code Description Data Paulina rce(s) Supporting Document(s) Cholesterol, Total 198 mg/dL 100-199 [facility] Triglycerides 215 mg/dL 0-149 Above high normal [facility] HDL Cholesterol 41 mg/dL >39 [facility] VLDL Cholesterol Marc 43 mg/dL 5-40 Above high normal [facility] LDL Cholesterol Calc 114 mg/dL 0-99 Above high normal L [facility] ID Date Data Source [id number] 10/24/2019 08:07:00 AM EDT [facility] Name Value Range Interpretation Code Description Data Paluina rce(s) Supporting Document(s) Vitamin D, 25-Hydroxy 49.7 ng/mL 30.0-100.0 [facility] Vitamin D deficiency has been defined by the [place] [employer] and an Endocrine Society practice guideline as alevel of serum 25-OH vitamin D less than 20 ng/mL (1,2).The Endocrine Society went on to further define vitamin Dinsufficiency as a level between 21 and 29 ng/mL (2).1. IOM ([place] [employer]). 2010. Dietary reference intakes for calcium and D. [place]: The National Academies Press.2. Sandra MF, Hero WHARTON, Norm MA, et al. Evaluation, treatment, and prevention of vitamin D deficiency: an Endocrine Society clinical practice guideline. JCEM. 2010; 96(7):1911-30. ID Date Data Source [id number] 04/25/2019 08:08:00 AM EST [facility] Name Value Range Interpretation Code Description Data Paulina rce(s) Supporting Document(s) Glucose 97 mg/dL 65-99 [facility] BUN 20 mg/dL 8-27 [facility] Creatinine 1.21 mg/dL 0.76-1.27 [facility] eGFR If NonAfricn Am 58 mL/min/1.73 >59 Below low normal [facility] eGFR If Africn Am 67 mL/min/1.73 >59 [facility] BUN/Creatinine Ratio 17 10-24 [facility] Sodium 135 mmol/L 134-144 [facility] Potassium 4.1 mmol/L 3.5-5.2 [facility] Chloride 98 mmol/L 96-106 [facility] Carbon Dioxide, Total 24 mmol/L 20-29 [facility] Calcium 9.5 mg/dL 8.6-10.2 [facility] Protein, Total 7.3 g/dL 6.0-8.5 [facility] Albumin 4.3 g/dL 3.7-4.7 [facility] Please no te reference interval change Globulin, Total 3.0 g/dL 1.5-4.5 [facility] A/G Ratio 1.4 1.2-2.2 [facility] Bilirubin, Total 0.7 mg/dL 0.0-1.2 [facility] Alkaline Phosphatase 69 IU/L 39-117 [facility] AST (SGOT) 27 IU/L 0-40 [facility] ALT (SGPT) 27 IU/L 0-44 [facility] ID Date Data Source [id number] 04/25/2019 08:08:00 AM EST [facility] Name Value Range Interpretation Code Description Data Paulina rce(s) Supporting Document(s) Cholesterol, Total 163 mg/dL 100-199 [facility] Triglycerides 204 mg/dL 0-149 Above high normal [facility] HDL Cholesterol 39 mg/dL >39 Below low normal [facility] VLDL Cholesterol Marc 41 mg/dL 5-40 Above high normal L [facility] LDL Cholesterol Calc 83 mg/dL 0-99 [facility] ID Date Data Source [id number] 04/24/2019 08:29:00 AM EST [facility] Name Value Range Interpretation Code Description Data Paulina rce(s) Supporting Document(s) Urea nitrogen [Mass/volume] in Serum or Plasma 20 mg/dL 8-27 [facility] Glucose [Mass/volume] in Serum or Plasma 97 mg/dL 65-99 [facility] Creatinine [Mass/volume] in Serum or Plasma 1.21 mg/dL 0.76-1.27 [facility] eGFR If NonAfricn Am 58 mL/min/1.73 [facility] eGFR If Africn Am 67 mL/min/1.73 [facility] ([facility] Urea nitrogen/Creatinine [Mass Ratio] in Serum or Plasma 17 1 0-24 [facility] Sodium [Moles/volume] in Serum or Plasma 135 mmol/L 134-144 [facility] Potassium [Moles/volume] in Serum or Plasma 4.1 mmol/L 3.5-5.2 [facility] ([facility] Carbon dioxide, total [Moles/volume] in Serum or Plasma 24 mmol/L 20 -29 [facility] Chloride [Moles/volume] in Serum or Plasma 98 mmol/L 96-106 [facility] Albumin [Mass/volume] in Serum or Plasma 4.3 g/dL 3.7-4.7 [facility] ([facility] Please note reference interval change* * Protein, Total 7.3 g/dL 6.0-8.5 [facility] ([facility] Calcium [Mass/volume] in Serum or Plasma 9.5 mg/dL 8.6-10.2 [facility] ([facility] Bilirubin.total [Mass/volume] in Serum or Plasma 0.7 mg/dL 0.0-1.2 [facility] ([facility] Globulin [Mass/volume] in Serum by calculation 3.0 g/dL 1.5-4.5 [facility] ([facility] Albumin/Globulin [Mass Ratio] in Serum or Plasma 1.4 1.2-2.2 [facility] ([facility] Alkaline phosphatase [Enzymatic activity/volume] in Serum or Plasma 69 IU/L 39-117 [facility] Alanine aminotransferase [Enzymatic activity/volume] in Seru m or Plasma 27 IU/L 0-44 [facility] ([facility] Aspartate aminotransferase [Enzymatic activity/volume] in Serum or Plasma 27 IU/L 0-40 [facility] ID Date Data Source [id number] 04/24/2019 08:29:00 AM EST [facility] Name Value Range Interpretation Code Description Data Paulina rce(s) Supporting Document(s) Cholesterol [Mass/volume] in Serum or Plasma 163 mg/dL 100-199 [facility] Triglyceride [Mass/volume] in Serum or Plasma 204 mg/dL 0-149 [facility] ([facility] Cholesterol in VLDL [Mass/volume] in Serum or Plasma by calc ulation 41 mg/dL 5-40 [facility] ([facility] Cholesterol in HDL [Mass/volume] in Serum or Plasma 39 mg/dL [facility] ([facility] Cholesterol in LDL [Mass/volume] in Serum or Plasma by calcu lation 83 mg/dL 0-99 [facility] Comment: TNP [facility] Procedure Vital Signs ID Date Data Source [id number] Name Value Range Interpretation Code Description Data Source(s) Diastolic blood pressure 80 mm[Hg] 80 mm[Hg] [facility] Systolic blood pressure 141 mm[Hg] 141 mm[Hg] [facility] ([facility] Diastolic blood pressure 91 mm[Hg] 91 mm[Hg] [facility] ([facility] Systolic blood pressure 155 mm[Hg] 155 mm[Hg] [facility] Body mass index (BMI) [Ratio] 28.1 kg/m2 28.1 k g/m2 [facility] ([facility] [place] body weight 166 [lb_av] 166 [lb_av] [facility] ([facility] Oxygen saturation in Arterial blood by Pulse oximetry 98 % 98 % [facility] ([facility] Body weight 196.12 [lb_av] 196.12 [lb_av] [facility] ([facility] Body height 70.0 [in_i] 70.0 [in_i] [facility] ([facility] 5'10" Respiratory rate 16 /min 16 /min [facility] ( [facility] Body temperature 97.7 [degF] 97.7 [degF] [facility] ([facility] Heart rate 17 /min 17 /min [facility] ([facility] [place] body weight 172 [lb_av] 172 [lb_av] [facility] ([facility] Body height 71 [in_i] 71 [in_i] [facility] 5'11" Body temperature 96.9 [degF] 96.9 [degF] [facility] Body mass index (BMI) [Ratio] 25.7 kg/m2 25.7 k g/m2 [facility] [place] body weight 172 [lb_av] 172 [lb_av] [facility] ([facility] Oxygen saturation in Arterial blood by Pulse oximetry 96 % 96 % [facility] ([facility] Body weight 184.25 [lb_av] 184.25 [lb_av] [facility] ([facility] Body height 71 [in_i] 71 [in_i] [facility] ([facility] 5'11" Respiratory rate 14 /min 14 /min [facility] ( [facility] Body temperature 97.1 [degF] 97.1 [degF] [facility] ([facility] Heart rate 83 /min 83 /min [facility] ([facility] Diastolic blood pressure 72 mm[Hg] 72 mm[Hg] [facility] Systolic blood pressure 109 mm[Hg] 109 mm[Hg] [facility] ([facility] Body mass index (BMI) [Ratio] 27.0 kg/m2 27.0 k g/m2 [facility] ([facility]) Diastolic blood pressure 78 mm[Hg] 78 mm[Hg] [facility] ([facility]) Systolic blood pressure 130 mm[Hg] 130 mm[Hg] M [facility] ([facility]) Respiratory rate 16 /min 16 /min [facility] ( [facility]) Heart rate 90 /min 90 /min [facility] ([facility] Body height 70 [in_i] 70 [in_i] [facility] 5'10" Body weight 188.50 [lb_av] 188.50 [lb_av] [facility] ([facility]) Oxygen saturation in Arterial blood by Pulse oximetry 98 % 98 % [facility] ([facility] Body weight 187.00 [lb_av] 187.00 [lb_av] [facility] ([facility] Body height 71 [in_i] 71 [in_i] [facility] ([facility] 5'11" Respiratory rate 16 /min 16 /min [facility] ( [facility] Body temperature 98.2 [degF] 98.2 [degF] [facility] ([facility] Heart rate 86 /min 86 /min [facility] ([facility] Diastolic blood pressure 71 mm[Hg] 71 mm[Hg] [facility] ([facility] Systolic blood pressure 120 mm[Hg] 120 mm[Hg] M [facility] ([facility] Body mass index (BMI) [Ratio] 26.1 kg/m2 26.1 k g/m2 [facility] ([facility]
--- OUTSIDE RECORDS SUMMARY | 2020-05-08 06:53 | CCD | Continuity of Care Document ---
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 Recreational Drug Use Denies Drug Use Smoking Status Reviewed: 10/30/19 Light tobacco smoker (10 or fewer cigarettes/day) [...] SIG Qnty Indications Ordering Provide r Date Meloxicam 7.5mg Tablets 1 tablet by mouth up to twice a day as needed for pain 60tabs M15.0 Kristy Costa M.D. 10/30/2019 Vitamin D (Ergocalciferol) 1.25mg (11122 Ut) Capsules take 1 capsule weekly Charissa Price M.D. 06/19/2019 Vitamin D3 1.25mg (64521 Ut) Capsu les take one capsule by mouth once weekly 14caps Charissa Costa M.D. 05/01/2019 Triamcinolone Acetonide 0.5% Cream apply to rash on trunk and extremities twice a day as needed for eczema 15gm L20.9 Reyes Galeano M.D. 07/26/2017 Spironolactone/Hydrochlorothiazide 25-25mg Tablets 1 tab by mouth every morning 90tabs Rajwinder Costa M.D. 04/16/2016 Azelastine HCL (Nasal) 0.15% Solut ion 1-2 sprays in each nostril twice a day as needed Unk nown Saline Nasal [place] 0.65% Solution use 4 times a day for nasal congestion/irritation Unkn own Fluticasone Propionate 50mcg/Act Suspension two sprays each side of nose daily Unknow n Losartan Potassium 100mg Tablets Take 1 Tablet Daily For Blood Pressure 90taCharissa Carter M.D. Omeprazole 20mg Capsules DR Take 1 Capsule Daily 90caps Charissa Costa M.D. 000 Amlodipine Besylate 10mg Tablets Take 1 Tablet Daily For Blood Pressure 90taCharissa Carter M.D. Venlafaxine HCL ER 75mg Tablets ER 24HR 1 by mouth every day 90taCharissa Carter M.D. Magnesium 250mg Tablets 1 by mouth every day Unknown Metamucil 48.57% Powder 1 teaspoon by mouth twice a day mixed in fluids Unknown Viagra 100mg Tablets take 1 tablet by mouth 30 minutes prior to intercourse. this is a 90 day supply 40tabs Charissa Costa M.D. Calcium 600 600mg Tablets 1 by mouth twice a day Unknown Multi-Vitamin Daily Tablets 1 by mouth every day Unknown Krill Oil [place]-3 500mg Capsules daily Unknown Aspir-[address] 1 by mouth every day Unknown Alprazolam 0.5mg Tablets 1 tab by mouth once a day if needed for sleep 30tabs Charissa Costa M.D. Immunizations CPT Code Status Date Vaccine Lot # [id number] Given 12/24/2019 Influenza Virus Vaccine, Quadrivalent,age 3 and up,multidose vial [id number] Given 02/01/2019 Influenza Virus Vaccine, Quadrivalent,age 3 and up,multidose vial [id number] [id number] Given 12/29/2017 Influenza Virus Vaccine, Quadrivalent,age 3 and up,multidose vial [id number] 86858 Given 01/03/2017 Influenza Vaccination 49485 Given 05/27/2016 Pneumococcal Vaccine [id number] 28603 Given 12/20/2015 Influenza Vaccination 69528 Given 10/30/2014 Prevnar 13 For Adults 79240 Given 10/30/2014 Zostavax Vital Signs Date Vital Result Comment 12/24/2019 1:40pm Body Temperature 96.9 F Height 71 inches 5'11" Peak Expiratory Flow Rate 504 Estimated Peak Flow Rate [place] Body Weight 172 lb 10/30/2019 10:47am BP Systolic 109 mmHg BP Diastolic 72 mmHg Heart Rate 83 /min Body Temperature 97.1 F Respiratory Rate 14 /min Height 71 inches 5'11" Weight 184.25 lb O2 % BldC Oximetry 96 % Peak Expiratory Flow Rate 504 Estimated Peak Flow Rate [place] Body Weight 172 lb BMI (Body Mass Index) 25.7 kg/m2 Results Test Acquired Date Facility Test Result H/L Range Note Lipid Panel 04/25/2020 [facility] [address] [place], [place] [id number] [phone] Cholesterol, Total 188 mg/dL 100-199 Triglycerides 137 mg/dL 0-149 HDL Cholesterol 42 mg/dL >39 VLDL Cholesterol Francisco 25 mg/dL 5-40 LDL Chol Calc (Nih) 121 mg/dL High 0-99 Comment: [facility] Metabolic Panel (14), Comprehensive 04/25/2020 [facility] [address] [place], [place] [id number] [phone] Glucose 104 mg/dL High 65-99 BUN 20 [...] Date Location Provider Dx Diagnosis Office Visit 10/30/2019 10:45a Main Office Megan Burden PA-C Z00.0 0 Encntr for general adult medical exam w/o abnormal findings I10 Essential (primary) hyperten scooby E78.2 Mixed hyperlipidemia K21.9 Gastro-esophageal reflux dis ease without esophagitis G47.00 Insomnia, unspecified M15.0 Primary generalized (osteo)a rthritis Assessments Date Code Description Provider 12/24/2019 Z23 Encounter for immunization Charissa Colon ams, M.D. 10/30/2019 Z00.00 Encounter for genera l adult medical examination without abnormal findings Charissa Costa M.D. 10/30/2019 Z00.00 Encounter for general adult medi francisco examination without abno Megan Burden PA-C 10/30/2019 I10 Essential (primary) hypertension Charissa Costa M.D. 10/30/2019 I10 Essential (primary) hypertension Megan Burden PA-C 10/30/2019 E78.2 Mixed hyperlipidemia Kristy Costa M.D. 10/30/2019 E78.2 Mixed hyperlipidemia Shelley Burden PA-C 10/30/2019 K21.9 Gastro-esophageal reflux disease without esophagitis Charissa Costa M.D. 10/30/2019 K21.9 Gastro-esophageal reflux disease without esophagitis Megan Burden PA-C 10/30/2019 G47.00 Insomnia, unspecified Charissa Costa M.D. 10/30/2019 G47.00 Insomnia, unspecified Ketan Burden PA-C 10/30/2019 M15.0 Primary generalized (osteo)jesusr Charissa Del Rio M.D. 10/30/2019 M15.0 Primary generalized (osteo)jesusr Megan Buitrago PA-C Plan of Treatment Future Appointment(s):* 05/01/2020 10:45 am - Leann Sahu PA at Main Office Functional Status Functional Condition Comment Date Status Bifocal glasses Active Independent with all ADL's Activ e couple dental implants Active Independent with all IADL's Acti ve Negative for Fall Risk Inactive Negative for Cognitive Impairment Inactive Mental Status Mental Condition Comment Date Status None Active Referrals Description No Information Available
[2020-05-08] MEDS ORDERED: OFLOXACIN 0.3 % (OCUFLOX) OPTH SOL 5ML OS ONE (07:00)
[2020-05-08] MEDS ORDERED: PROPARACAINE 0.5% OPHTH SOL 15ML OS ONE (07:00)
[2020-05-08] MEDS ORDERED: TROPICAMIDE 1% OPHTH SOLN 2ML OS ONE (07:00)
[2020-05-08] MEDS ORDERED: PHENYLEPHRINE 2.5% OPHTH SOL 2ML OS ONE (07:00)
[2020-05-08] MEDS ORDERED: MIDAZOLAM INJ 2MG/2ML VIAL (J2250 PER 1MG) As Ordered ONE (07:16)
[2020-05-08] MEDS ORDERED: fentaNYL 100 MCG/2 ML INJECTION (J3010) As Ordered ONE (07:17)
[2020-05-08] MEDS ORDERED: BALANCED SALT IRRIGATION SOLUTION 500ML BAG (FOR OR EYE MACHINE) As Ordered ONE (08:22)
[2020-05-08] MEDS ORDERED: LIDOCAINE 1% MDV 20ML VIAL As Ordered ONE (08:35)
[2020-05-08 10:06] VITALS: BP 132/70
--- NOTE | 2020-05-09 11:32 | RO ---
OPERATIVE NOTE DATE OF OPERATION: 05/08/2020 PREOPERATIVE DIAGNOSES: 1. 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 2. Secondary corneal edema, left eye. 3. Pseudophakia. POSTOPERATIVE DIAGNOSES: 1. 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 2. Secondary corneal edema, left eye. 3. Pseudophakia. PROCEDURES: Descemet's membrane endothelial keratoplasty of the left eye with use of CorneaGen 7.5 mm graft. SURGEON: Aubrey Mejia DO. ARMATURE VARNISHER: ANESTHESIA: Local with MAC. SPECIMENS: 1. Patient endothelium. 2. Donor cornea for cultures. DESCRIPTION OF PROCEDURE: Patient was seen and identified in the preoperative entry area. The patient received antibiotics, anesthetics, and dilating drops on the surface of the surgical eye. The consents were reviewed, and the surgical eye was marked. The patient was then transferred to the operating room. The eye was prepped and draped in the sterile fashion. Tegaderm was placed on the upper and lower eyelids, and a wire lid speculum was placed. Using a marking pen, a 0.6 mm paracentesis blade was marked, and a superior and inferior paracentesis incision was made. One percent lidocaine with epinephrine was injected into the anterior chamber. Provisc was then injected into the anterior chamber. An 8.0 mm metal trephine was used to adriane the corneal epithelium, and this area was further marked with a marking pen. Using a reverse Sinskey hook, a 360 degree endothelial score was performed and then the Descemet's membrane was detached. A temporal 2.4 mm incision was made. A reverse stripping instrument was used to remove the patient's endothelium, and this was sent to pathology. Irrigation and aspiration was used to remove all viscoelastic from the anterior chamber. Trypan Blue was then injected looking for any endothelial tags, none were found. This was washed out with irrigation and aspiration. The chamber was refilled and then the incision was hydrated with BSS. Attention was then turned to the donor cornea. Donor cornea was gently poured into a Susie dish filled with BSS. Using the Geuder glass cannula, graft was aspirated into the proximal end of the Geuder glass cannula. A 3 mL syringe filled with BSS was then attached to the proximal end of the Geuder glass cannula using a no touch technique. The graft was advanced into the distal end of the Geuder glass cannula. The graft was then brought near the patient's eye. Using a 0.12 forceps and the Geuder glass cannula, the graft was gently placed into the anterior chamber and then a gentle burst of BSS was used to inject the graft into the anterior chamber. This graft was then rotated 90 degrees away from the incision. The Geuder glass cannula was removed paying careful attention so that the graft did not egress from the incision. Using two BSS syringes with 30 gauge cannulas, the graft was gently tapped until the graft was unraveled and then S-stamp was visible and then centered. Air was then placed underneath the donor graft for complete air fill. A 10-0 nylon suture was placed on the temporal clear corneal incision. The knot was buried. Air was then filled to 100%, and the pressure was left elevated for approximately two minutes. After the two minutes, a small amount of air was replaced with BSS so that the air bubble was mobile and clearing the inferior peripheral iridotomy that was created preoperatively. Pressure was normal at this time. Using BSS, all incisions were hydrated. A contact lens was placed on the surface of the cornea. The wire lid speculums and drapes were removed. The patient was discharged to the PACU in stable condition with instructions to lie flat for approximately on hour postoperatively and then will be checked.
== END 2020-05-08 10:40 | disposition home or self-care (01) ==
LOC: M SDC 06:43
PROVIDERS: ATTEND Ophthalmology
DX: H18.512 Endothelial corneal dystrophy, left eye (principal); H18.232 Secondary corneal edema, left eye; I10 Essential (primary) hypertension; E78.5 Hyperlipidemia, unspecified; F17.210 Nicotine dependence, cigarettes, uncomplicated; F41.9 Anxiety disorder, unspecified; R12 Heartburn; M12.9 Arthropathy, unspecified; Z79.82 Long term (current) use of aspirin; Z79.899 Other long term (current) drug therapy; Z96.1 Presence of intraocular lens
CPT/HCPCS: 65756; 87070; 87075; 88300; J2250; J3010; V2785

== ENCOUNTER → 2022-02-12 | Outpatient (CLI) | payer MEDICARE, OTHER ==
[~2022-02-12] MED LIST changes: -ACETYLCHOLINE OPHTH SOLN 1% 2ML (MIOCHOL-E) As Ordered ONE; -DUOVISC (0.50ML VISCOAT/0.55ML PROVISC) OPHTH KIT As Ordered ONE; +ERGO500029 PO; +LOSA100T45 PO; -LOSA100T50 PO; +OMEP-173 PO; -OMEP-218 PO; -POVIDONE-IODINE 5% OPHTH PREP SOL 30ML As Ordered ONE; -TOBRADEX OPHTH OINT 3.5 GM As Ordered ONE; -TRYPAN BLUE 0.06 % 2.25 ML OPHTH SYR (VISIONBLUE) As Ordered ONE; -VITA50005 PO
== END ==
LOC: M RAD 13:29
PROVIDERS: ATTEND Family Medicine
DX: R05.1 Acute cough (principal)